=== PATIENT | male | born 1990 | race Hispanic/Latino ===

== ENCOUNTER 2021-01-20 02:48 | Emergency (ER) | payer SELFPAY ==
[2021-01-20] MEDS ORDERED: MORPHINE 2 MG/ML SYR ONE (04:00)
[2021-01-20] MEDS ORDERED: ONDANSETRON 4 MG/2 ML VIAL ONE (04:00)
[2021-01-20] MEDS ORDERED: NA CHLORIDE 0.9% 100 ML ONE (04:01)
[2021-01-20] MEDS ORDERED: CEFAZOLIN SODIUM 1 GM/VIAL ONE (04:01)
[2021-01-20 04:10] LABS: Absolute Lymphocytes (CBC) 2.5 K/uL (0.7-4.9); Basophils % 0.9 % (0-1.3); Hematocrit 41.8 % (39.6-49.0); Lymphocytes % 28.5 % (15.3-44.8); MPV 8.7 fL (7.6-11.3); RBC Red Blood Cell Count 4.42 M/uL (4.33-5.43)
[2021-01-20 04:22] LABS: ALT/SGPT 47 U/L (12-78); AST/SGOT 19 U/L (15-37); Albumin 3.5 g/dL (3.4-5.0); Alkaline Phosphatase 83 U/L (45-117); BUN Blood Urea Nitrogen 13 mg/dL (7-18); Bicarbonate 26 mmol/L (21-32); Bilirubin Total 0.3 mg/dL (0.2-1.0); Glucose Level 95 mg/dL (74-106); Potassium 3.5 mmol/L (3.5-5.1); Protein, Total 7.1 g/dL (6.4-8.2); Sodium Level 142 mmol/L (136-145)
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
[2021-01-20] MEDS ORDERED: LIDOCAINE 1% W/EPI 1:100,000 MDV 20 ML VIAL ONE (04:43)
[2021-01-20] MEDS ORDERED: CEPHALEXIN 250 MG CAP ONE (05:06)
[2021-01-20 05:41] VITALS: TEMP 97.8
[2021-01-20 05:46] VITALS: BP 129/80; O2SAT 98
--- NOTE | 2021-01-20 08:49 | RAD REPORT ---
EXAM DESCRIPTION: RAD - Chest Single View - 01/20/2021 3:19 am CLINICAL HISTORY: CHEST PAIN COMPARISON: None TECHNIQUE: AP portable chest image was obtained 01/20/2021 3:19 am . FINDINGS: Lungs are clear. Heart and vasculature are normal. No measurable pleural effusion and no p neumothorax. No acute bony abnormality seen. No acute aortic findings suspected. IMPRESSION: No acute cardiopulmonary process.
--- NOTE | 2021-01-21 13:50 | RAD REPORT ---
EXAM DESCRIPTION: CT - Facial Bones W/ Mpr - 01/20/2021 7:06 am CLINICAL HISTORY: The patient is 30 years old and is Male; Facial pain;Fracture TECHNIQUE: Axial computed tomography images of the face without intravenous contrast. Sagittal and coronal reformatted images were created and reviewed. This CT exam was performed using one or more of the following dose reduction techniques: automated exposure control, adjustment of the mA and/o r kV according to patient size, and/or use of iterative reconstruction technique. COMPARISON: No relevant prior studies available. FINDINGS: BONES/JOINTS: Comminuted fracture of the nasal bones and frontal process of the maxilla is present. Postsurgical change of the maxilla bilaterally is present. Remaining bones of the face ar e intact. SOFT TISSUES: Unremarkable. ORBITS: Unremarkable. SINUSES: Unremarkable. No air-fluid levels. IMPRESSION: Comminuted fractures of the nasal bones and frontal process of the maxilla. The patient has extensive postsurgical change of the bones of the face. It is unclear if all of the fractures see n at the level of the nasal bones are acute versus chronic. Correlation with prior CT would be useful . Electronically signed by: Radha Newman MD 01/20/2021 3:36 AM CDT Due to temporary technical issues with the PACS/Fluency reporting system, reports are being signed by the in house radiologist without review as a courtesy to ensure prompt reporting. The interpreting r adiologist is fully responsible for the content of the report.
== END 2021-01-20 05:33 | disposition home or self-care (01) ==
LOC: ER 02:48
PROC: 0JQ10ZZ Repair Face Subcutaneous Tissue and Fascia, Open Approach (ICD-10-PCS; principal; 2021-01-20)
DX: S02.42XA Fracture of alveolus of maxilla, initial encounter for closed fracture (principal); Y04.8XXA Assault by other bodily force, initial encounter; Y92.009 Unspecified place in unspecified non-institutional (private) residence as the place of occurrence of the external cause
CPT/HCPCS: 36415; 70486; 71045; 76377; 80053; 85025; 96365; 96375; 99285; J0690; J2270; J2405